=== PATIENT | male | born 1995 | race Caucasian/White ===

== ENCOUNTER 2017-02-18 11:37 | Inpatient (IN) | payer BC ==
[~2017-02-18] VITALS: Ht 170.2 cm; Wt 54.4 kg
[2017-02-18] MEDS ORDERED: NACL 0.9% 1,000 ML IV ONE ×2 (11:40→11:49)
--- NOTE | 2017-02-18 11:40 | NUR ---
Pt placed to ER bed 04, report given to TOMMY Lawrence.
--- NOTE | 2017-02-18 11:45 | NUR ---
Pt complains of left lower abdominal pain since this morning, denies fever, has a diarrhea x3 episodes, vomiting last week but no vomiting today. Pt states pain is 7/10. No other injuries/complaints per pt or noted.
--- NOTE | 2017-02-18 11:47 | NUR ---
Pt placed to ER bed 08, to [facility], report given to TOMMY Lawrence.
--- NOTE | 2017-02-18 11:55 | NUR ---
ER at bedside examining patient.
[2017-02-18] MEDS ORDERED: MORPHINE 4 MG/ML INJ. SYRINGE IVP ONE (12:00)
[2017-02-18] MEDS ORDERED: ONDANSETRON HCL 4 MG/2 ML VIAL IVP ONE (12:00)
[2017-02-18 12:13] LABS: BASOPHILS % (AUTO) 0.3 % (0.0-2.0); EOSINOPHILS # (AUTO) 0.1 K/uL (0.0-0.4); EOSINOPHILS % (AUTO) 0.6 % (0.0-4.0); HEMOGLOBIN 15.9 g/dL (14.0-18.0); LYMPHOCYTES # (AUTO) 2.9 K/uL (1.0-5.5); LYMPHOCYTES % (AUTO) 23.8 % (20.5-51.5); MEAN CORPUSCULAR HEMOGLOBIN 30 pg (27-31); MEAN CORPUSCULAR HGB CONC 32 % (32-36); MEAN CORPUSCULAR VOLUME 93 fL (79.0-98.0); MONOCYTES # (AUTO) 0.8 K/uL (0.0-1.0); MONOCYTES % (AUTO) 6.6 % (1.7-9.3); NEUTROPHILS # (AUTO) 8.6 K/uL (1.8-7.7); NEUTROPHILS % (AUTO) 68.7 % (40.0-70.0); PLATELET COUNT (AUTO) 228 K/uL (130-430); RED BLOOD CELL COUNT(AUTO) 5.25 MIL/uL (4.2-6.2); RED CELL DISTRIBUTION WIDTH 11.9 % (9.0-15.0); WHITE BLOOD COUNT (AUTO) 12.4 K/uL (4.8-10.8)
[2017-02-18 12:15] LABS: BILIRUBIN,URINE NEGATIVE (NEGATIVE); BLOOD, URINE NEGATIVE (NEGATIVE); CLARITY/URINE CLEAR (CLEAR); COLOR,URINE YELLOW (YELLOW); GLUCOSE,URINE NEGATIVE (NEGATIVE); KETONES,URINE NEGATIVE (NEGATIVE); LEUKOCYTE ESTERASE ,URINE NEGATIVE (NEGATIVE); NITRITE, URINE NEGATIVE (NEGATIVE); PH,URINE 6.5 (5.0-8.0); PROTEIN URINE NEGATIVE (NEGATIVE); UROBILINOGEN,URINE 0.2 (0.2-1.0)
[2017-02-18 12:23] LABS: CALCIUM 8.8 mg/dL (8.4-11.0); CREATININE 0.99 mg/dL (0.55-1.30); POTASSIUM 3.5 mmol/L (3.5-5.1)
[2017-02-18 12:27] LABS: ALBUMIN 4.6 g/dL (3.4-4.8); BARBITURATE, URINE NEGATIVE (NEG <=200); BENZODIAZEPINE, URINE POSITIVE (NEG <=150); CANNABINOID, URINE POSITIVE (NEG <=50); COCAINE, URINE NEGATIVE (NEG <=150); METHAMPHETAMINES SCREEN,URINE NEGATIVE (NEG <=500); OPIATE, URINE NEGATIVE (NEG <=100); PHENCYCLIDINE SCREEN,URINE NEGATIVE (NEG <=25); PROTHROMBIN TIME 10.9 SECS (9.5-12.5); TOTAL BILIRUBIN 0.5 mg/dL (0.0-1.0); UR TRICYCLIC ANTIDEPRESSANTS NEGATIVE (NEG <=300); URINE AMPHETAMINE NEGATIVE (NEG <=500); URINE METHADONE NEGATIVE (NEG <=200); URINE OXYCODONE SCREEN NEGATIVE (NEG <=100); URINE PROPOXYPHENE SCREEN NEGATIVE (NEG <=300)
--- NOTE | 2017-02-18 12:30 | NUR ---
IV hydration was started and pt tolerating well. Pt taken to CT in stable condition
[2017-02-18] MEDS ORDERED: IOHEXOL 100 ML IV ONE (12:37)
--- NOTE | 2017-02-18 12:45 | NUR ---
Pt came back from CT in stable condition
--- NOTE | 2017-02-18 13:30 | NUR ---
Dr Moreno was here to admit the pt. Pt is aware and Dr Correa was consulted and should be seeing the pt before he goes to the floor.
[2017-02-18] MEDS ORDERED: metroNIDAZOLE 500 mg/NS 100 ML IV ONE (13:45)
--- NOTE | 2017-02-18 14:00 | NUR ---
Dr Correa was here to see the pt and explained that he needed to have an appendectomy and wrote the consent for the pt and I witnessed. Pt is suppose to have surgery aiden at 1830
[2017-02-18] MEDS ORDERED: ALPR0.2583 PO (14:13)
[2017-02-18] MEDS ORDERED: cefTRIAXone 2 GM VIAL ONE (14:14)
[2017-02-18] MEDS ORDERED: ACETAMINOPHEN 325 MG TABLET PO PRN (14:15)
[2017-02-18] MEDS ORDERED: ONDANSETRON HCL 4 MG/2 ML VIAL IVP PRN ×2 (14:15→19:00)
[2017-02-18] MEDS ORDERED: MORPHINE 2 MG/ML INJ. SYRINGE IVP PRN (14:15)
[2017-02-18] MEDS ORDERED: TEMAZEPAM 15 MG CAPSULE PO PRN (14:15)
[2017-02-18] MEDS ORDERED: PIPERACILLIN/TAZO 3.375 GM in NS 50 ML IV ONE (14:15)
--- NOTE | 2017-02-18 14:23 | NUR ---
Patient will be admitted to care of Dr Moreno. Admitted to Med Surg unit. Will go to room 135. Belongings list completed. Summary report printed. Report will be given at bedside.
--- NOTE | 2017-02-18 14:26 | NUR ---
ADMISSION NOTE Received patient from ER via hugo, received report from SEWER BRICKLAYER. Patient admitted with diagnosis of ACUTE APPENDICITIS. Patient oriented to hospital routine, call light, toileting and safety-patient verbalized understanding.
[2017-02-18 14:29] VITALS: BP_SYST 132
--- NOTE | 2017-02-18 14:30 | NUR ---
OPENING NOTE PT PRESENTED WITH ACUTE APPENDICITIS AND IS SCHEDULED FOR A LAPAROSCOPIC APPENDECTOMY AT 1800 TONIGHT. PT IS STABLE ON ROOM AIR AND IS NOT COMPLAINING OF DISCOMFORT. IV IS PATENT, DRESSING DRY AND INTACT. PT ABDOMEN IS NON-DISTENDED BUT HE COMPLAINS OF RLQ TENDERNESS AND REBOUND PAIN. I EDUCATED PT AND FAMILY ON UNIT SAFETY AND CALL LIGHT OPERATIONS. BED IN LOWEST POSITION AND CALL LIGHT IS WITHIN REACH.
[2017-02-18 16:00] VITALS: BP_SYST 142
--- NOTE | 2017-02-18 16:00 | NUR ---
RN ROUNDS PT IS SITTING UP IN BED TALKING WITH HER MOTHER AND FATHER WHO ARE AT BEDSIDE. HE STATED HIS ABDOMINAL PAIN IS MILD AND CONSTANT AND THAT HE DOES NOT WANT ANY PAIN MEDICATION AT THIS TIME. tHE BED IS SET IN ITS LOWEST POSITION AND THE CALL LIGHT IS WITHIN REACH
[2017-02-18] MEDS: LR 1,000 ML IV SCH (16:02)
[2017-02-18] MEDS: MORPHINE 4 MG/ML INJ. SYRINGE IVP PRN (17:24)
--- NOTE | 2017-02-18 17:32 | NUR ---
PAIN MEDICATION PATIENT CALLING AT THIS TIME, STATES SEVERE PAIN LEVEL AT THIS TIME, EDUCATED THE PATIENT ON PAIN MEDICATION AND POTENTIAL SIDE EFFECTS, PATIENT VERBALIZED UNDERSTANDING, IV SITE IS PATENT AND INFUSING WELL, FAMILY IS AT THE BEDSIDE, BED IN LOWEST POSITION, TWO SIDE RAILS UP, CALL LIGHT NEXT TO THE PATIENT'S HAND.
--- NOTE | 2017-02-18 18:20 | NUR ---
PT TRANSPORTED TO Sx/CLOSING NOTE PT IS STABLE ON ROOM AIR AND HAS BEEN PREPPED FOR SURGERY. IV FLUIDS DISCONTINUED, IV PATENT AND SALINE LOCKED PER OR DEPARTMENT REQUEST. PT AND FAMILY EDUCATED ON PRE AND POST-OP PROCEDURES AND POST-SURGICAL INFECTION PRECAUTIONS.
[2017-02-18] MEDS ORDERED: LR 1,000 ML IV SCH (18:59)
[2017-02-18] MEDS ORDERED: HYDROmorphone 1 MG INJ. 1 MG/ML AMPUL IVP PRN (19:00)
[2017-02-18] MEDS ORDERED: MEPERIDINE HCL/PF 25 MG/ML DISP.SYRIN IVP PRN ×2 (19:00)
[2017-02-18] MEDS ORDERED: KETOROLAC TROMETHAMINE 30 MG VIAL IVP PRN (19:00)
[2017-02-18] MEDS ORDERED: HYDROmorphone 2 MG/ML VIAL IVP PRN ×2 (19:00)
--- NOTE | 2017-02-18 19:51 | NUR ---
Initial PM Note Pt is not back from OR.
[2017-02-18] MEDS ORDERED: MEPERIDINE HCL/PF 25 MG/ML DISP.SYRIN ONE (20:23)
--- NOTE | 2017-02-18 20:50 | NUR ---
Arrival Form PACU Pt arrived from PACU via bed fully AAO x4. Speech is clear and pt is able to make his needs known. Family members are present in pt's room and communicating verbally with pt. IVF of LR from PACU is infusing well in LAC without any signs of infiltration. 3 abdominal laparoscopic sites dressing are clean and dry. No bleeding noted. Fall and safety precautions are in place.
[2017-02-18] MEDS: PIPERACILLIN/TAZO 3.375/DEX-IS 50 ML IV SCH (21:20)
[2017-02-18 21:21] VITALS: BP_SYST 137
--- NOTE | 2017-02-18 21:30 | NUR ---
Rounds Pt is resting comfortably in bed and tolerating clear liquid diet. Pt is eating Jello and drinking Apple juice without any c/o nausea or vomiting or abdominal pain. IVF is infusing well in LAC.
--- NOTE | 2017-02-18 21:45 | NUR ---
Smoking Cessation Handout Smoking Cessation Handout explained and given to pt who verbalized understanding.
--- NOTE | 2017-02-18 22:15 | NUR ---
New IV Line IV site in LAC very positional and IV machine beeping intermittently. After concurring with pt, new IV line started in LFA with Angiocath 20g after one attempt for IVF and IV site in LAC converted to saline lock.
[2017-02-18] MEDS: HYDROcodone/ACETAMIN 5-325 MG TAB (NORCO/ VICODIN) PO PRN (23:14)
--- NOTE | 2017-02-18 23:14 | NUR ---
Pain/Insomnia [place] 5/325mg 1 tablet and Restoril 30mg given po per pt's request for c/o lower abdominal incisional pain and insomnia with good effect.
[2017-02-18 23:46] VITALS: BP_SYST 108
--- NOTE | 2017-02-19 | NUR ---
Rounds Pt is sleeping without any distress noted. IVF is infusing well in LFA.
--- NOTE | 2017-02-19 02:00 | NUR ---
Rounds Pt is sleeping comfortably in bed. Fall and safety precautions are in place.
[2017-02-19 02:44] VITALS: BP_SYST 108
[2017-02-19] MEDS: PIPERACILLIN/TAZO 3.375/DEX-IS 50 ML IV SCH ×3 (03:50→13:26)
[2017-02-19] MEDS: HYDROcodone/ACETAMIN 5-325 MG TAB (NORCO/ VICODIN) PO PRN ×2 (03:54→11:58)
--- NOTE | 2017-02-19 03:54 | NUR ---
Pain Medication [place] 5/325mg 1 tablet was given po per pt's request for c/o lower abdominal incisional pain with good effect.
[2017-02-19] MEDS: LR 1,000 ML IV SCH (03:55)
[2017-02-19 04:16] VITALS: BP_SYST 116
--- NOTE | 2017-02-19 05:00 | NUR ---
Rounds Pt is sleeping without any distress noted. IVF is infusing well.
--- NOTE | 2017-02-19 06:22 | NUR ---
Closing Note Pt is awake and resting comfortably in bed. All pt's needs were attended to. No fall or injury noted this shift. Will endorse to day shift nurse.
[2017-02-19 08:06] VITALS: BP_SYST 122
--- NOTE | 2017-02-19 08:08 | NUR ---
OPENING NOTE PT IS POST OP LAPAROSCOPIC APPENDECTOMY DAY 1 AND IS STABLE ON ROOM AIR COMPLAINING OF MODERATE ABDOMINAL PAIN. PT IS A/O X 4, AFEBRILE, AND IS SITTING UP IN A CHAIR AT BEDSIDE EATING HIS BREAKFAST. I EDUCATED THE PT ON POST-SURGICAL SAFETY AND INFECTION AWARENESS. INCENTIVE SPIROMETER AT BEDSIDE AND PT DEMONSTRATED PROPER USE REACH 2500 MARKER. IV PATENT, DRESSING DRY AND INTACT. THE THREE SURGICAL INCISIONS ARE DRESSED WITH 2X2 GAUZE, DRESSING DRY AND INTACT. CALL LIGHT IS WITHIN REACH.
[2017-02-19] MEDS: MORPHINE 4 MG/ML INJ. SYRINGE IVP PRN (09:13)
--- NOTE | 2017-02-19 10:30 | NUR ---
RN ROUNDS PT IS SITTING UP IN BED TALKING WITH HIS MOTHER AND FATHER WHO ARE BEDSIDE WITH NO COMPLAINT OF DISCOMFORT. I DETACHED HIS SCD DEVICES SO HE MAY AMBULATE, AND EDUCATED HIM ON CONTACTING ME WHEN HE IS READY TO REST IN BED SO I MAY REATTACH THEM. BED IS IN LOWEST POSITION, AND CALL LIGHT IS WITHIN REACH.
--- NOTE | 2017-02-19 12:07 | NUR ---
RN ROUNDS PT IS SITTING UP IN BED TALKING WITH HIS FATHER WHO IS AT BEDSIDE. HE IS COMPLAINING OF MODERATE PAIN EVEN THOUGH HE RECEIVED 4MG MORPHINE THREE HOURS AGO, SO I ADMINISTERED THE [place] ORDERED PRN FOR MODERATE PAIN. THE BED IS IN ITS LOWEST POSITION, AND THE CALL LIGHT IS WITHIN REACH IN HIS LAP.
[2017-02-19 12:12] VITALS: BP_SYST 139
[2017-02-19] MEDS ORDERED: HYDR-1189 PO (13:37)
[2017-02-19] MEDS ORDERED: DOCU-144 PO (13:37)
[2017-02-19 14:17] VITALS: BP_SYST 139
--- NOTE | 2017-02-19 14:50 | NUR ---
D/C Patient Patient given medication reconciliation form and D/C instructions. Exit Care provided. Patient verbalized understanding. MD discussed with patient the results and treatment provided and follow-up plan. Ambulatory with steady gait for discharge to home. Patient in stable condition, ID band removed. IV catheter removed, intact and dressing applied, no active bleeding. Rx of [place] and Zofran provided. Patient educated on pain management and how to recognize s/s of post-surgical infection. All belongings sent with patient.
== END 2017-02-19 14:50 | disposition home or self-care (01) | DRG 343 ==
LOC: SED 11:37 → SMU 14:04
PROVIDERS: ADMIT Internal Medicine; ATTEND Internal Medicine
PROC: 0DTJ4ZZ Resection of Appendix, Percutaneous Endoscopic Approach (ICD-10-PCS; principal; 2017-02-18 18:30)
DX: K35.80 Unspecified acute appendicitis (principal); F17.210 Nicotine dependence, cigarettes, uncomplicated; F32.9 Major depressive disorder, single episode, unspecified; F41.9 Anxiety disorder, unspecified
CPT/HCPCS: 36415; 80053; 80307; 81003; 83690-TC; 85025; 85610-TC; 85730-TC; 87081; 88304; 96361; 96365; 96367; 96375; 99285; J0696; J2175; J2270; J2405; J2543; J3490; J7030; J7060; J7120; Q9967

== ENCOUNTER 2017-05-27 14:44 | Emergency (ER) | payer BC ==
[~2017-05-27] VITALS: Ht 172.7 cm; Wt 52.2 kg
[2017-05-27 14:44] VITALS: BP_SYST 155
[~2017-05-27 14:44] MED LIST: ALPR0.2583 PO; DOCU-144 PO; HYDR-1189 PO
[2017-05-27 15:09] LABS: BASOPHILS # (AUTO) 0.1 K/uL (0.0-0.2); BASOPHILS % (AUTO) 0.5 % (0.0-2.0); EOSINOPHILS # (AUTO) 0.1 K/uL (0.0-0.4); EOSINOPHILS % (AUTO) 0.6 % (0.0-4.0); HEMATOCRIT 49.6 % (36-54); LYMPHOCYTES # (AUTO) 3.7 K/uL (1.0-5.5); LYMPHOCYTES % (AUTO) 34.9 % (20.5-51.5); MEAN CORPUSCULAR HEMOGLOBIN 31 pg (27-31); MEAN CORPUSCULAR HGB CONC 32 % (32-36); MEAN CORPUSCULAR VOLUME 95 fL (79.0-98.0); MONOCYTES # (AUTO) 0.6 K/uL (0.0-1.0); MONOCYTES % (AUTO) 6.1 % (1.7-9.3); NEUTROPHILS % (AUTO) 57.9 % (40.0-70.0); PLATELET COUNT (AUTO) 215 K/uL (130-430); RED BLOOD CELL COUNT(AUTO) 5.24 MIL/uL (4.2-6.2); RED CELL DISTRIBUTION WIDTH 12.3 % (9.0-15.0); WHITE BLOOD COUNT (AUTO) 10.5 K/uL (4.8-10.8)
[2017-05-27] MEDS ORDERED: NACL 0.9% 1,000 ML IV ONE ×2 (15:09→15:15)
[2017-05-27] MEDS ORDERED: DIPHENHYDRAMINE INJ 50 MG/ML VIAL IVP ONE (15:15)
[2017-05-27] MEDS ORDERED: MORPHINE 4 MG/ML INJ. SYRINGE IVP ONE (15:15)
[2017-05-27 15:31] LABS: CALCIUM 9.1 mg/dL (8.4-11.0); CREATININE 0.98 mg/dL (0.55-1.30); POTASSIUM 3.6 mmol/L (3.5-5.1)
[2017-05-27 15:36] LABS: ALBUMIN 4.9 g/dL (3.4-4.8); TOTAL BILIRUBIN 0.6 mg/dL (0.0-1.0)
[2017-05-27] MEDS ORDERED: LORazepam 2 MG/ML VIAL (FOR ER USE) IVP ONE (15:45)
[2017-05-27] MEDS ORDERED: MAGNESIUM CITRATE 300 ML ORAL SOLUTION PO ONE (16:15)
[2017-05-27 16:31] VITALS: BP_SYST 136
== END 2017-05-27 16:29 | disposition home or self-care (01) ==
LOC: SED 14:44
DX: K59.00 Constipation, unspecified (principal); F12.10 Cannabis abuse, uncomplicated; R03.0 Elevated blood-pressure reading, without diagnosis of hypertension; F17.210 Nicotine dependence, cigarettes, uncomplicated; Z71.6 Tobacco abuse counseling; Z90.89 Acquired absence of other organs
CPT/HCPCS: 36415; 74176; 80053; 83690; 85025; 96361; 96374; 96375; 99285; J1200; J2060; J2270; J7030

== ENCOUNTER 2022-08-29 16:20 | Inpatient (IN) | payer BC, MEDICAID ==
[~2022-08-29] VITALS: Ht 170.2 cm; Wt 52.2 kg
[~2022-08-29 16:20] MED LIST changes: +ALPR0.25 PO; -ALPR0.2583 PO; -HYDR-1189 PO; +HYDR-3919 PO
[2022-08-29 16:30] VITALS: BP_SYST 118
--- NOTE | 2022-08-29 16:30 | NUR ---
Patient to ER bed H1 to gown for evaluation. Side rails up.
--- NOTE | 2022-08-29 16:45 | NUR ---
ER at bedside examining patient.
--- NOTE | 2022-08-29 17:00 | NUR ---
PT TO RECEIVE FURTHER EVALUATON FOR ELEVATED HR. PT WITHHOLDING INFORMATION REGARDING SUBSTANCE USE.
[2022-08-29] MEDS ORDERED: LORazepam 2 MG/ML VIAL IM ONE (17:15)
[2022-08-29 17:35] LABS: HEMATOCRIT 45.6 % (36-54); HEMOGLOBIN 15.7 g/dL (14.0-18.0); MEAN CORPUSCULAR HEMOGLOBIN 32 pg (27-31); MEAN CORPUSCULAR HGB CONC 35 % (32-36); MEAN CORPUSCULAR VOLUME 92 fL (79.0-98.0); PLATELET COUNT (AUTO) 251 K/uL (130-430); RED BLOOD CELL COUNT(AUTO) 4.95 MIL/uL (4.2-6.2); RED CELL DISTRIBUTION WIDTH 13.3 % (9.0-15.0); WHITE BLOOD COUNT (AUTO) 27.7 K/uL (4.8-10.8)
[2022-08-29 17:50] LABS: BAND % (MANUAL) 9 % (0-6); BASOPHILS % (MANUAL) 0 % (0-2); EOSINOPHILS % (MANUAL) 0 % (0-7); LYMPHOCYTES % (MANUAL) 6 % (20-46); MONOCYTES % (MANUAL) 5 % (0-11)
--- NOTE | 2022-08-29 17:52 | NUR ---
PT MEDICATED FOR ANXIETY.
[2022-08-29 18:30] LABS: ANION GAP 25 (5-15); CALCIUM 9.4 mg/dL (8.4-11.0); CHLORIDE 96 mmol/L (98-107); CREATININE 1.62 mg/dL (0.55-1.30); GLUCOSE 257 mg/dL (70-99); UREA NITROGEN, BLOOD 7 mg/dL (8-21)
--- NOTE | 2022-08-29 18:30 | NUR ---
Repeat HR 124.Dr. Gutierrez informed.
[2022-08-29 18:35] LABS: GFR AFRICAN AMERICAN 66 mL/min (>90)
[2022-08-29 18:37] LABS: ASPARTATE AMINOTRANSFERASE 13 U/L (10-37); TOTAL BILIRUBIN 0.4 mg/dL (0.0-1.0)
[2022-08-29 18:39] LABS: ACETAMINOPHEN < 1 ug/mL (1-30)
[2022-08-29 18:58] LABS: ALANINE AMINOTRANSFERASE 19 U/L (12-78)
[2022-08-29] MEDS ORDERED: NACL 0.9% 2,000 ML IV ONE (20:15)
[2022-08-29] MEDS ORDERED: AMOXICILLIN/POTASSIUM CLAV 875 MG TABLET PO ONE (20:30)
--- NOTE | 2022-08-29 20:39 | NUR ---
Admit bed requested Patient will be admitted to care of Dr. Casillas Admitted to TELEMETRY unit. Diagnosis SEPSIS Inpatient (Yes or No) yes Observation (Yes or No) no Orientation concerns or request close to nursing station (Yes or No) no Covid Status negative On vent or bipap no Isolation requirements no Needs a sitter no From Home (Yes or if No enter name of facility) yes Requires Dialysis (Yes or No) no Med Rec Completed (Yes of No) yes
[2022-08-29] MEDS ORDERED: INSULIN LISPRO SLIDING SCALE 100 UNITS/ML, 3 ML VIAL (humaLOG) SUBCUT PRN (20:45)
[2022-08-29] MEDS ORDERED: NACL 0.9% 1,000 ML IV SCH (20:45)
[2022-08-29] MEDS ORDERED: DEXTROSE 50% JECT 50 ML DISP.SYRIN IVP PRN (20:45)
--- NOTE | 2022-08-29 21:06 | NUR ---
# 20 gauge angiocath placed to . Use of asceptic technique. Opsite placed over site. Blood return noted. Blood for lab drawn from site. Flushed with 10 cc of normal saline. No evidence of infiltration noted. Patient tolerated well.
[2022-08-29] MEDS ORDERED: cefTRIAXone 1 GM VIAL ONE (21:12)
[2022-08-29] MEDS ORDERED: cefTRIAXone 1 GM in D5W 50 ML IV ONE (21:30)
[2022-08-29 22:07] LABS: BILIRUBIN,URINE NEGATIVE (NEGATIVE); CLARITY/URINE CLEAR (CLEAR); COLOR,URINE YELLOW (YELLOW); GLUCOSE,URINE NEGATIVE (NEGATIVE); KETONES,URINE NEGATIVE (NEGATIVE); LEUKOCYTE ESTERASE ,URINE NEGATIVE (NEGATIVE); NITRITE, URINE NEGATIVE (NEGATIVE); PROTEIN URINE TRACE (NEGATIVE); UROBILINOGEN,URINE 0.2 (0.2-1.0)
[2022-08-29 22:09] LABS: BLOOD, URINE TRACE (NEGATIVE)
[2022-08-29 22:25] LABS: BARBITURATE, URINE NEGATIVE (NEG <=200); BENZODIAZEPINE, URINE POSITIVE (NEG <=150); CANNABINOID, URINE POSITIVE (NEG <=50); COCAINE, URINE NEGATIVE (NEG <=150); METHAMPHETAMINES SCREEN,URINE NEGATIVE (NEG <=500); OPIATE, URINE NEGATIVE (NEG <=100); PHENCYCLIDINE SCREEN,URINE NEGATIVE (NEG <=25); UR TRICYCLIC ANTIDEPRESSANTS NEGATIVE (NEG <=300); URINE AMPHETAMINE NEGATIVE (NEG <=500); URINE METHADONE NEGATIVE (NEG <=200); URINE OXYCODONE SCREEN NEGATIVE (NEG <=100); URINE PROPOXYPHENE SCREEN NEGATIVE (NEG <=300)
[2022-08-29 22:35] LABS: BACTERIA,URINE None Seen /HPF (None Seen); HYALINE CASTS, URINE 0-10 /LPF (None Seen); MUCUS,URINE 1+ /LPF (None Seen); RBC,URINE 0-3 /HPF (0-3); WBC,URINE NONE SEEN /HPF (0-3)
[2022-08-29] MEDS ORDERED: MIRT-114 PO (23:31)
[2022-08-29] MEDS ORDERED: Effexor (23:33)
--- NOTE | 2022-08-30 00:17 | NUR ---
Patient will be admitted to care of Dr. Casillas. Admitted to Telemetry unit. Will go to room 111B. Belongings list completed. Complete and up to date summary report printed. SBAR report given to TOMMY Atkins with opportunity for questions.
--- NOTE | 2022-08-30 00:30 | NUR ---
recieved pt from ED. pt accompanied by chief resource officer. Pt adm for sustance abuse, and for medical clearance. pt is aox4, no real deficits. VSS, pt locked on bed with restraints by chief resource officer. Pt is st tele. fuids and abx orders to be carried out. Will monitor, and bed locked in lowest position.
[2022-08-30 01:50] VITALS: BP_SYST 116
[2022-08-30 07:59] VITALS: BP_SYST 126
[2022-08-30 08:34] LABS: BASOPHILS % (AUTO) 0.3 % (0.0-2.0); EOSINOPHILS % (AUTO) 0.4 % (0.0-4.0); HEMATOCRIT 42.3 % (36-54); HEMOGLOBIN 14.5 g/dL (14.0-18.0); LYMPHOCYTES # (AUTO) 2.2 K/uL (1.0-5.5); LYMPHOCYTES % (AUTO) 19.8 % (20.5-51.5); MEAN CORPUSCULAR HEMOGLOBIN 32 pg (27-31); MEAN CORPUSCULAR HGB CONC 34 % (32-36); MEAN CORPUSCULAR VOLUME 93 fL (79.0-98.0); MONOCYTES # (AUTO) 1.2 K/uL (0.0-1.0); MONOCYTES % (AUTO) 10.8 % (1.7-9.3); NEUTROPHILS # (AUTO) 7.5 K/uL (1.8-7.7); NEUTROPHILS % (AUTO) 68.7 % (40.0-70.0); PLATELET COUNT (AUTO) 164 K/uL (130-430); RED BLOOD CELL COUNT(AUTO) 4.56 MIL/uL (4.2-6.2); RED CELL DISTRIBUTION WIDTH 13.3 % (9.0-15.0); WHITE BLOOD COUNT (AUTO) 10.9 K/uL (4.8-10.8)
[2022-08-30 08:54] LABS: ALBUMIN 4.2 g/dL (3.4-4.8); CALCIUM 8.9 mg/dL (8.4-11.0); CREATININE 1.38 mg/dL (0.55-1.30); TOTAL BILIRUBIN 0.5 mg/dL (0.0-1.0)
[2022-08-30] MEDS ORDERED: cefTRIAXone 1 GM in D5W 50 ML IV SCH (09:00)
[2022-08-30] MEDS ORDERED: AMOX-423 PO (10:42)
[2022-08-30] MEDS ORDERED: EFF37 PO (10:43)
--- NOTE | 2022-08-30 11:00 | NUR ---
PATIENT DISCHARGED IN CARE OF OFFICER. TO BE TAKEN TO LONG-TERM. COOPERATIVE COMPLIANT PLEASANT iv REMOVED UOP GOOD WITH HYDRATION. ANTIBIOTIC GIVEN PRIOR TO DISCHARGE. PAPER WORK COMPLETED FOR LONG-TERM SYSTEM SPECIAL FORM COMPLETED COPY GIVEN TO OFFICER. PATIENT IN HAND CUFF'S USE OF WHEEL CHAIR TO BE TRANSPORTED TO [facility]. NEW PRESCRIPTIONS GIVEN TO OFFICER EXPLANATION GIVEN TO PATIENT AND OFFICER ON NEW MEDICATION'S INSTRUCTED PATIENT TO FOLLOW UP WITH PRIMARY AND PSYCHIATRIST
[2022-08-30 11:06] VITALS: BP_SYST 116
== END 2022-08-30 11:00 | DRG 469 ==
LOC: SED 16:20 → STU 20:36
PROVIDERS: ADMIT General Practice; ATTEND General Practice
DX: N17.0 Acute kidney failure with tubular necrosis (principal); E87.20 Acidosis, unspecified; R65.10 Systemic inflammatory response syndrome (SIRS) of non-infectious origin without acute organ dysfunction; R73.9 Hyperglycemia, unspecified; R00.0 Tachycardia, unspecified; F17.210 Nicotine dependence, cigarettes, uncomplicated; F32.A Depression, unspecified; F12.10 Cannabis abuse, uncomplicated; Z20.822 Contact with and (suspected) exposure to COVID-19
CPT/HCPCS: 36415; 71045; 80053; 80307; 81000; 82550; 83037; 83605; 85007; 85025; 85027; 87040; 87081; 93005; 96365; 96372; 99291; G0378; G0480; G0481; J0696; J2060; J7060